=== PATIENT | female | born 1970 | race Two or more races ===

== ENCOUNTER 2016-07-30 19:53 | Emergency (ER) | payer OTHER ==
[2016-07-30 20:01] VITALS: BP 170/102; PULSE 89; TEMP 98.4; BMI 32.0
--- NOTE | 2016-07-30 21:04 | PDOC ---
History of Present Illness - General Chief Complaint: Edema Stated Complaint: SWOLLEN LEG History Source: Patient Exam Limitations: No Limitations - History of Present Illness Initial Comments: 07/30/16 20:42 Patient is a 45 year old with h/o DM, HTN c/o swelling to the left lower leg x 10 days. States she went out her backyard and slipped hitting leg on a rock. She has had some swelling to the left castro, did not ice initially but iced the next day. However the swelling has progressed. She saw a doctor who did xray and was found to be neg. She has been on Keflex for possible cellulitis for 3 days and has noted a little less swelling but the redness not resolved. Swelling intermittently improved with elevation but after a day of work the swelling is worse. She is concern because she is diabetic. No recent travel, no Fam Hx of DVT/PE. PMD: Dr. Drummond ALL: NKDA GENERAL/CONSTITUTIONAL: [No fever or chills. No weakness. No weight change.] HEAD, EYES, EARS, NOSE AND THROAT: [No change in vision. No ear pain or discharge. No sore throat.] CARDIOVASCULAR: [No chest pain or shortness of breath.] RESPIRATORY: [No cough, wheezing, or hemoptysis.] GASTROINTESTINAL: [No nausea, vomiting, diarrhea or constipation. No rectal bleeding.] GENITOURINARY: [No dysuria, frequency, or change in urination.] MUSCULOSKELETAL: [No joint or muscle swelling or pain. No neck or back pain.] SKIN AND BREASTS: [No rash or easy bruising.] NEUROLOGIC: [No headache, vertigo, loss of consciousness, or loss of sensation.] PSYCHIATRIC: [No depression or anxiety.] ENDOCRINE: [No increased thirst. No abnormal weight change.] HEMATOLOGIC/LYMPHATIC: [No anemia, easy bleeding, or history of blood clots.] ALLERGIC/IMMUNOLOGIC: [No hives or skin allergy. No latex allergy.] GENERAL: [The patient is awake, alert, and fully oriented, in no acute distress. ] HEAD: [Normal with no signs of trauma.] EYES: [Pupils equal, round and reactive to light, extraocular movements intact, sclera anicteric, conjunctiva clear.] ENT: [Ears normal, nares patent, oropharynx clear without exudates. Moist mucous membranes.] NECK: [Normal range of motion, supple without lymphadenopathy, JVD, or masses.] LUNGS: [Breath sounds equal, clear to auscultation bilaterally. No wheezes, and no crackles.] HEART: [Regular rate and rhythm, normal S1 and S2 without murmur, rub.] ABDOMEN: [Soft, nontender, normoactive bowel sounds. No guarding, no rebound. No masses.] EXTREMITIES: [Normal range of motion, no edema. No clubbing or cyanosis. No cords, (+) swelling 4x4 cm over the distal castro, mild erythema, mild tenderness.] NEUROLOGICAL: [Cranial nerves II through XII grossly intact. Normal speech, normal gait.] PSYCH: [Normal mood, normal affect.] SKIN: [Warm, Dry, normal turgor, no rashes or lesions noted.] 07/30/16 21:04 Past History - Past Medical History Allergies/Adverse Reactions: Allergies Allergy/AdvReac Type Severity Reaction Status Date / Time No Known Allergies Allergy Verified 10/01/12 01:09 Home Medications: Ambulatory Orders Lisinopril [Prinivil] 40 mg PO DAILY 10/01/12 Hydrochlorothiazide [Hctz -] 20 mg PO DAILY 07/30/16 Metformin HCl 750 mg PO BID 07/30/16 Diabetes: Yes HTN: Yes - Immunization History Immunization Up to Date: Yes - Psycho/Social/Smoking Cessation Hx Anxiety: No Suicidal Ideation: No Smoking Status: No Smoking History: Never smoked Have you smoked in the past 12 months: No Number of Cigarettes Smoked Daily: 0 Information on smoking cessation initiated: No Hx Alcohol Use: No Drug/Substance Use Hx: No *Physical Exam - Vital Signs Last Vital Signs Temp Pulse Resp BP Pulse Ox 98.4 F 89 18 170/102 98 07/30/16 19:57 07/30/16 19:57 07/30/16 19:57 07/30/16 19:57 07/30/16 19:57 ED Treatment Course - RADIOLOGY Radiology Studies Ordered: Category Date Time Status DUPLEX VASCUL US-1 LEG [US] Stat Ultrasound 07/30/16 20:39 Ordered SOFT TISSUE EXTREMITY US [US] Stat Ultrasound 07/30/16 20:39 Ordered Medical Decision Making - Medical Decision Making 07/30/16 21:04 Patient is a 45 year old with h/o DM, HTN c/o swelling to the left lower leg x 10 days, PERC neg but in the light of an injury will doppler left r/o DVT, Patient has been on antibiotic x 3 days without improvement will r/o abscess with US. 07/30/16 23:31 US lower ext neg for DVT, soft tissue hematoma vs seroma inst patient to follow up with pmd for further work up given NICK bandage 07/30/16 23:33 I discussed the physical exam findings, ancillary test results and final diagnoses with the patient. I answered all of the patient's questions. The patient was satisfied with the care received and felt comfortable with the discharge plan and treatment plan. The Patient agrees to follow up with the primary care physician within 24-72 hours. Patient Name: Yolande Robles THIS IS A PRELIMINARYREPORT FROM [facility] EXAM: CT lumbar spine without contrast IMAGES: [id number] INDICATION: Low back pain DATE OF SERVICE: 2016-07-31 04:28:15.0 COMPARISON: none FINDINGS: No fracture or subluxation. There is a small herniated disc osteophyte complex at the T12/ L1 level which mildly narrows the central canal. The L1 to, L2-3 and L3-4 levels are normal. L4-5 disc demonstrates a small to moderate-sized left central and left lower disc herniation which mildly narrow the left lateral recess and moderately narrows the left neural foramen. L5/S1 disc and small central protrusion or herniation without significant mass effect. IMPRESSION: Small central herniated disc aspect at the T12/L1 level which mildly narrows the central canal. Small to moderate-sized L4-5 left central/left lateral disc herniation which mildly narrows the left lateral recess and moderately narrows the left neural foramen. Small central L5/S1 disc herniation without significant mass effect. THIS DOCUMENT HAS BEEN ELECTRONICALLY SIGNED Louis Beasley MD 07/31/2016 05:03 BRIDGETTE Urbina Please call [facility] [phone] ([phone]) with questions. End of Report Content *DC/Admit/Observation/Transfer Diagnosis at time of Disposition: Hematoma - Discharge Dispostion Disposition: HOME Condition at time of disposition: Stable - Referrals Referrals: Sandy Laureano [Primary Care Provider] - - Patient Instructions Additional Instructions: Your Discharge Instructions: You must call primary care physician within 24 hours to arrange follow-up. Return to the Emergency Department with any new, persistent or worsening symptoms, for fever, chills, SOB, dizziness or any other concerning changes that may occur. - Post Discharge Activity Work/School Note: Back to Work
== END 2016-07-30 23:15 | disposition home or self-care (01) ==
LOC: JER 19:53
DX: S80.12XA Contusion of left lower leg, initial encounter (principal); I10 Essential (primary) hypertension; E11.9 Type 2 diabetes mellitus without complications; Z79.84 Long term (current) use of oral hypoglycemic drugs; W01.198A Fall on same level from slipping, tripping and stumbling with subsequent striking against other object, initial encounter; Y93.89 Activity, other specified; Y92.017 Garden or yard in single-family (private) house as the place of occurrence of the external cause
CPT/HCPCS: 76882; 93971-TC; 99282-25